=== PATIENT | male | born 1955 | race Caucasian/White ===

== ENCOUNTER 2018-07-18 14:02 | Day surgery (SDC) | payer MEDICAID ==
[~2018-07-18] VITALS: Ht 170.2 cm; Wt 85.0 kg
[2018-07-18 14:15] VITALS: BP 145/97
[2018-07-18] MEDS ORDERED: MIDAZolam 5mg/5ml vial ONE (14:16)
[2018-07-18] MEDS ORDERED: iohexol 300 MG/1 ML 50ml polymer ONE (14:16)
[2018-07-18] MEDS ORDERED: diphenhydrAMINE 50 mg/ml inj ONE (14:16)
[2018-07-18] MEDS ORDERED: LIDOcaine Viscous 15ml cup ONE (14:16)
[2018-07-18] MEDS ORDERED: fentaNYL/PF 50MCG/1 ML 2ML syringe ONE (14:16)
[2018-07-18] MEDS ORDERED: glucagon, human recombinant 1mg kit ONE (14:16)
[2018-07-18] MEDS ORDERED: METR250T PO (14:22)
[2018-07-18 14:51] VITALS: BP 134/86
[2018-07-18 15:01] VITALS: BP 140/73
[2018-07-18 15:11] VITALS: BP 126/92
[2018-07-18 15:21] VITALS: BP 136/93
== END 2018-07-18 17:10 | disposition home or self-care (01) ==
LOC: GI LAB 14:02
PROVIDERS: ATTEND Internal Medicine Gastroenterology
DX: T85.520A Displacement of bile duct prosthesis, initial encounter (principal); Y83.8 Other surgical procedures as the cause of abnormal reaction of the patient, or of later complication, without mention of misadventure at the time of the procedure; Y92.89 Other specified places as the place of occurrence of the external cause; Z87.19 Personal history of other diseases of the digestive system; Z86.19 Personal history of other infectious and parasitic diseases; Z79.899 Other long term (current) drug therapy
CPT/HCPCS: 43260; 74328; 99152; J1200; J1610; J2250; J3010; J7030; Q9967; A4620